=== PATIENT | female | born 1950 | race Asian ===

== ENCOUNTER 2018-10-11 14:01 | Emergency (ER) | payer MEDICARE ==
--- NOTE | 2018-10-11 14:12 | Emergency Department Report ---
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
[2018-10-11 15:27] LABS: INR 0.91 (0.87-1.13)
[2018-10-11 15:44] LABS: Creatine Kinase MB 1.9 ng/mL (0.0-4.0)
[2018-10-11 15:46] LABS: Alanine Aminotransferase 18 units/L (7-56); Albumin 3.9 g/dL (3.9-5); BUN/Creatinine Ratio 19; Blood Urea Nitrogen 23 mg/dL (7-17); Calcium 9.4 mg/dL (8.4-10.2); Hemolysis Index 14
--- NOTE | 2018-10-11 16:05 | XRay Report ---
PROCEDURE: XR CHEST ROUTINE 2V HISTORY: Lightheadedness/Dizziness FINDINGS: Frontal and lateral views the chest were acquired. The heart is normal in size. The lungs a ppear clear. The pleura and mediastinum are within normal limits. IMPRESSION: No active disease in the chest This document is electronically signed by Cliff Madera MD., October 11 2018 04:03:09 PM ET
--- NOTE | 2018-10-11 16:39 | Emergency Department Report ---
ED General Adult HPI - General Chief complaint: High BP Stated complaint: ALTERED MENTAL STATUS Time Seen by Provider: 10/11/18 15:52 Source: patient Mode of arrival: Ambulatory Limitations: Altered Mental Status - History of Present Illness Initial comments: Patient is a 68-year-old female that presents emergency room with complaints of elevated blood pressure and headache and lightheadedness. Patient states that her symptoms have resolved. Patient states prior to coming to the ER patient took an extra dose of her atenolol and her enalapril. Patient is currently taking enalapril 10 mg twice a day and atenolol 25 mg daily. Patient states she is back to normal. Patient's blood pressure is better. Patient's current blood pressure is 140/80. Patient denies chest pain shortness of breath. Patient denies headache at this time. Patient denies lightheadedness patient denies fever and chills. Patient denies abdominal pain. She denied blurred vision. Patient denies dizziness. Patient states she missed her doses of both fresh medications yesterday. -: Sudden Severity scale (0 -10): 0 Consistency: now resolved Improves with: medication Worsens with: none Associated Symptoms: headaches. denies: confusion, chest pain, cough, diaphoresis, fever/chills, loss of appetite, malaise, nausea/vomiting, rash, seizure, shortness of breath, syncope, weakness Treatments Prior to Arrival: Aspirin, other (extra atenolol and Enalapril) - Related Data Previous Rx's Medication Instructions Recorded Last Taken Type Atenolol [Tenormin] 25 mg PO BID 10 Days #20 tab 10/11/18 Unknown Rx Allergies Allergy/AdvReac Type Severity Reaction Status Date / Time No Known Allergies Allergy Unverified 10/11/18 14:10 ED Review of Systems ROS: Stated complaint: ALTERED MENTAL STATUS Other details as noted in HPI Constitutional: denies: chills, fever Eyes: denies: eye pain, eye discharge, vision change ENT: denies: ear pain, throat pain Respiratory: denies: cough, shortness of breath, wheezing Cardiovascular: denies: chest pain, palpitations Endocrine: no symptoms reported Gastrointestinal: denies: abdominal pain, nausea, diarrhea Genitourinary: denies: urgency, dysuria, discharge Musculoskeletal: denies: back pain, joint swelling, arthralgia Skin: denies: rash, lesions Neurological: denies: weakness, paresthesias Psychiatric: denies: anxiety, depression Hematological/Lymphatic: denies: easy bleeding, easy bruising ED Past Medical Hx - Past Medical History Previous Medical History?: Yes Hx Hypertension: Yes Additional medical history: Pt. reports having "one kidney." - Surgical History Past Surgical History?: Yes Additional Surgical History: Nephrectomy - Family History Family history: hypertension - Social History Smoking Status: Former Smoker Substance Use Type: None - Medications Home Medications: Home Medications Medication Instructions Recorded Confirmed Last Taken Type Atenolol [Tenormin] 25 mg PO BID 10 Days #20 tab 10/11/18 Unknown Rx ED Physical Exam - General Limitations: No Limitations General appearance: alert, in no apparent distress - Head Head exam: Present: atraumatic, normocephalic - Eye Eye exam: Present: normal appearance, PERRL, EOMI Pupils: Present: normal accommodation - ENT ENT exam: Present: mucous membranes moist - Neck Neck exam: Present: normal inspection - Respiratory Respiratory exam: Present: normal lung sounds bilaterally. Absent: respiratory distress - Cardiovascular Cardiovascular Exam: Present: regular rate, normal rhythm. Absent: systolic murmur, diastolic murmur, rubs, gallop - GI/Abdominal GI/Abdominal exam: Present: soft, normal bowel sounds - Rectal Rectal exam: Present: deferred - Extremities Exam Extremities exam: Present: normal inspection - Back Exam Back exam: Present: normal inspection, full ROM - Neurological Exam Neurological exam: Present: alert, oriented X3, CN II-XII intact, normal gait. Absent: motor sensory deficit - Expanded Neurological Exam Expanded Patient oriented to: Present: person, place, time Speech: Present: fluid speech Best Eye Response (Marty): (4) open spontaneously Best Motor Response (Marty): (6) obeys commands Best Verbal Response (Marty): (5) oriented Jayson Total: 15 - Psychiatric Psychiatric exam: Present: normal affect, normal mood - Skin Skin exam: Present: warm, dry, intact, normal color. Absent: rash ED Course Vital Signs 10/11/18 10/11/18 10/11/18 14:11 15:52 16:00 Temperature 97.9 F Pulse Rate 100 H 69 Respiratory 18 25 H 19 Rate Blood Pressure 197/99 146/87 O2 Sat by Pulse 99 98 Oximetry 10/11/18 10/11/18 10/11/18 16:15 16:17 16:30 Temperature Pulse Rate 66 64 Respiratory 13 14 17 Rate Blood Pressure 147/89 141/82 O2 Sat by Pulse 100 100 Oximetry 10/11/18 10/11/18 10/11/18 16:46 17:00 17:15 Temperature Pulse Rate 61 64 59 L Respiratory 12 19 22 Rate Blood Pressure 160/75 159/79 157/82 O2 Sat by Pulse 100 100 100 Oximetry 10/11/18 17:30 Temperature Pulse Rate 54 L Respiratory 16 Rate Blood Pressure 160/75 O2 Sat by Pulse 99 Oximetry - Reevaluation(s) Reevaluation #1: Discussed all results with patient. Discussed discharge patient. Patient agrees with discharge. Patient is stable for discharge. Patient given discharge instructions. 10/11/18 17:33 ED Medical Decision Making - Lab Data Result diagrams: 10/11/18 15:10 10/11/18 14:58 - EKG Data -: EKG Interpreted by Mo EKG shows normal: sinus rhythm, axis, intervals, QRS complexes, ST-T waves Rate: normal - EKG Data Interpretation: [facility] - Radiology Data Radiology results: report reviewed PROCEDURE: XR CHEST ROUTINE 2V HISTORY: Lightheadedness/Dizziness FINDINGS: Frontal and lateral views the chest were acquired. The heart is normal in size. The lungs appear clear. The pleura and mediastinum are within normal limits. IMPRESSION: No active disease in the chest - Medical Decision Making Patient is a 68-year-old female that presents emergency room with complaints of headache, lightheadedness and high blood pressure. Patient took an extra dose of her blood pressure medication and her blood pressure improved dramatically. Patient's blood pressure better after her taking her blood pressure medication. [facility] had a 200 systolic blood pressure. Vital signs reviewed. Labs unremarkable. Chest x-ray negative. EKG normal. Patient is stable for discharge. Patient will be given a twice a day dose of atenolol since the patient responded so well to her doubling her medications. Patient stable for discharge. Patient discharged home. Patient given discharge instr uctions. Patient voiced understanding of discharge instructions. - Differential Diagnosis hypertension. Missed dose Headache. Lightheadedness Critical care attestation.: If time is entered above; I have spent that time in minutes in the direct care of this critically ill patient, excluding procedure time. ED Disposition Clinical Impression: Lightheaded Hypertension Qualifiers: Hypertension type: essential hypertension Qualified Code(s): I10 - Essential (primary) hypertension Disposition: TO HOME OR SELFCARE Is pt being admited?: No Does the pt Need Aspirin: No Condition: Stable Instructions: Heart Healthy Diet (ED), How to Take a Blood Pressure (ED), DASH Eating Plan (ED), Low Sodium Diet (ED), Hypertension (ED) Additional Instructions: Patient to follow-up with primary care in 2-3 days. Patient to take meds as directed. Patient to increase atenolol to twice a day. Patient to continue her enalapril as previously prescribed. Patient to return to ER if condition worsens. Patient to eat a low salt and a heart healthy diet. Patient to rest. Patient to increase water. Prescriptions: Atenolol [Tenormin] 25 mg PO BID 10 Days #20 tab Referrals: RINA JAMES MD [Primary Care Provider] - 2-3 Days Time of Disposition: 17:36
[2018-10-11 17:18] LABS: Hematocrit 34.1 % (30.3-42.9); Hemoglobin 11.3 gm/dl (10.1-14.3); Mean Corpuscular HGB Conc 33 % (30-34); Mean Corpuscular Volume 81 fl (79-97); Platelet Count 208 K/mm3 (140-440); Red Blood Count 4.21 M/mm3 (3.65-5.03); Red Cell Distribution Width 16.2 % (13.2-15.2)
[2018-10-11 17:22] LABS: Lymphocytes % (Auto) 17.6 % (13.4-35.0); Monocytes % (Auto) 9.9 % (0.0-7.3)
[2018-10-11 17:23] LABS: Basophils % (Auto) 0.4 % (0.0-1.8); Eosinophils % (Auto) 0.7 % (0.0-4.3)
[2018-10-11 17:26] LABS: Monocytes # (Auto) 0.6 K/mm3 (0.0-0.8)
[2018-10-11 18:05] VITALS: BP 160/75
== END 2018-10-11 18:04 | disposition home or self-care (01) ==
LOC: ED 14:01
DX: I10 Essential (primary) hypertension (principal); Z87.891 Personal history of nicotine dependence
CPT/HCPCS: 36415; 71046; 80053; 82140; 82550; 82553; 82962; 84484; 85025; 85610; 93005; 93010